=== PATIENT | female | born 1980 | race Caucasian/White ===

== ENCOUNTER → 2017-03-10 | Outpatient (CLI) | payer OTHER ==
[~2017-03-10] MED LIST: PRENTAB26 PO
--- NOTE | 2017-03-10 12:21 | DIAGNOSTIC IMAGING REPORT ---
ULTRASOUND OF THE THYROID GLAND CLINICAL HISTORY: Thyroid nodule. COMPARISON STUDY: No priors. TECHNIQUE: Real-time, grayscale, and color flow sonography of the thyroid gland is performed utilizing a high-frequency linear transducer. Images are reviewed in the transverse and longitudinal planes. FINDINGS: Right lobe: The right lobe of the thyroid gland is normal in size and homogeneous in echotexture, measuring 5.7 x 2.0 x 2.7 cm. A dominant solid nodule in the right mid to lower pole measures 3.0 x 1.8 x 2.1 cm. This demonstrates a hypoechoic halo and internal flow on color imaging. A 0.7 x 0.8 x 0.9 cm solid nodule is seen in the lower pole. Left lobe: The left lobe of the thyroid gland is normal in size and homogeneous in echotexture, measuring 4.6 x 1.0 x 1.4 cm. A 5 mm hypoechoic nodule is incidentally noted in the lower pole. Isthmus: The thyroid isthmus is normal in appearance and measures 0.2 cm in AP diameter. IMPRESSION: 1. The thyroid gland is normal in size and echotexture. 2. There is a dominant 3.0 cm solid nodule in the right mid to lower pole. If not previously performed, fine-needle aspiration of this nodule is recommended based on size criteria. Electronically signed by: Manolo Toussaint M.D. 03/10/2017 12:20 PM Dictated Date/Time: 03/10/2017 12:18 PM
== END | disposition home or self-care (01) ==
LOC: C.ULTR 11:50
PROVIDERS: ATTEND Family Medicine
DX: E04.1 Nontoxic single thyroid nodule (principal)

== ENCOUNTER → 2017-03-28 | Outpatient (CLI) | payer OTHER ==
[2017-03-28 14:06] LABS: ALT/SGPT 17 U/L (12-78); BLOOD UREA NITROGEN 14 mg/dl (7-18); CALCIUM 8.8 mg/dl (8.5-10.1); CARBON DIOXIDE 27 mmol/L (21-32); CHLORIDE 107 mmol/L (98-107); CHOLESTEROL 152 mg/dl (0-200); CREATININE 0.83 mg/dl (0.60-1.20); GLUCOSE 88 mg/dl (70-99); POTASSIUM 3.8 mmol/L (3.5-5.1); SODIUM 139 mmol/L (136-145); TRIGLYCERIDES 132 mg/dl (0-150); VERY LOW DENSITY LIPOPROT CALC 26 mg/dl
[2017-03-28 14:33] LABS: CHOLESTEROL/HDL RATIO 3.1; HDL CHOLESTEROL 49 mg/dl; LDL CHOLESTEROL CALCULATED 77 mg/dl
== END | disposition home or self-care (01) ==
LOC: C.LABMFLN 08:37
PROVIDERS: ATTEND Family Medicine
DX: E04.1 Nontoxic single thyroid nodule (principal); Z13.1 Encounter for screening for diabetes mellitus; Z13.220 Encounter for screening for lipoid disorders

== ENCOUNTER → 2017-03-28 | Outpatient (CLI) | payer OTHER ==
--- NOTE | 2017-03-28 12:01 | DIAGNOSTIC IMAGING REPORT ---
GUIDANCE NEEDLE PLACEMENT CLINICAL HISTORY: BENIGN NEOPLASM OF THYROID thyroid nodule TECHNIQUE: Ultrasound-guided fine-needle aspiration COMPARISON STUDY: None FINDINGS: Following informed consent and description of procedure, a single pass with a 25-gauge needle to the dominant nodule of the right thyroid was performed. Pathology indicated adequate cellularity. There are no complications. IMPRESSION: Successful fine-needle aspiration right thyroid. Pathology is pending. The above report was generated using voice recognition software. It may contain grammatical, syntax or spelling errors. Electronically signed by: Junior Rodrigues M.D. 03/28/2017 12:00 PM Dictated Date/Time: 03/28/2017 11:59 AM
== END | disposition home or self-care (01) ==
LOC: C.ULTR 09:48
PROVIDERS: ATTEND Otolaryngology
DX: D34 Benign neoplasm of thyroid gland (principal)

== ENCOUNTER → 2018-03-27 | Outpatient (CLI) | payer OTHER ==
--- NOTE | 2018-03-27 08:18 | DIAGNOSTIC IMAGING REPORT ---
GALLBLADDER-ABD LIMITED CLINICAL HISTORY: UPPER GASTRIC PAIN pain. Nausea. TECHNIQUE: Ultrasound COMPARISON STUDY: None FINDINGS: Normal gallbladder. Common bile duct 3 mm. Fatty infiltration of liver. Pancreas and right kidney are normal. IMPRESSION: Fatty infiltration of the liver. Otherwise negative study. The above report was generated using voice recognition software. It may contain grammatical, syntax or spelling errors. Electronically signed by: Junior Rodrigues M.D. 03/27/2018 8:17 AM Dictated Date/Time: 03/27/2018 8:16 AM
== END | disposition home or self-care (01) ==
LOC: C.ULTR 07:41
PROVIDERS: ATTEND Family Medicine
DX: K76.0 Fatty (change of) liver, not elsewhere classified (principal); R10.13 Epigastric pain

== ENCOUNTER → 2018-03-29 | Outpatient (CLI) | payer OTHER ==
[2018-03-29 12:44] LABS: HEMATOCRIT 40.7 % (37-47); HEMOGLOBIN 13.7 g/dL (12.0-16.0)
[2018-03-29 12:55] LABS: ALBUMIN 3.5 gm/dl (3.4-5.0); TOTAL PROTEIN 6.9 gm/dl (6.4-8.2)
== END | disposition home or self-care (01) ==
LOC: C.LABMFLN 07:11
PROVIDERS: ATTEND Family Medicine
DX: R10.13 Epigastric pain (principal)